=== PATIENT | male | born 1990 | race Caucasian/White ===

== ENCOUNTER 2016-10-20 12:32 | Emergency (ER) | payer SELFPAY ==
[2016-10-20 12:48] VITALS: BP 141/99
[2016-10-20] MEDS ORDERED: Ketorolac 30 MG/ML SDV IM ONE (13:13)
--- NOTE | 2016-10-20 13:19 | EDM.PDOC ---
ED HPI GENERAL MEDICAL PROBLEM - General Chief Complaint: Back Pain or Injury Stated Complaint: [id number] SOMETHING PULLED IN BACK Time Seen by Provider: 10/20/16 13:14 Source of Information: Reports: Patient History Limitations: Reports: No Limitations - History of Present Illness INITIAL COMMENTS - FREE TEXT/NARRATIVE: 26 yo male presents with lower back pain. States that he "felt something this morning before going to work and then I went to get in my car and felt worse when getting out." States that pain increases with sitting and bending. Pt used rolling walker to ambulate to stretcher. No other complaints. denies trauma. Onset: Today Onset Time: 10:00 Duration: Constant Location: Reports: Back Quality: Reports: Ache Severity: Moderate Improves with: Reports: Immobilization Worsens with: Reports: Movement Context: Reports: Activity Associated Symptoms: Reports: No Other Symptoms Lower Back Pain Score (Numeric/FACES): 10 - Related Data Allergies Allergy/AdvReac Type Severity Reaction Status Date / Time No Known Allergies Allergy Verified 10/20/16 12:48 Home Meds: Home Meds . [No Known Home Meds] 10/20/16 [History] Past Medical History - Past Health History Medical/Surgical History: Denies Medical/Surgical History Social & Family History - Family History Family Medical History: Noncontributory - Tobacco Use Smoking Status *Q: Current Every Day Smoker Years of Tobacco use: 10 Packs/Tins Daily: 0.5 - Caffeine Use Caffeine Use: Reports: Soda - Recreational Drug Use Recreational Drug Use: No ED ROS GENERAL - Review of Systems Review Of Systems: ROS reveals no pertinent complaints other than HPI. ED EXAM,LOWER BACK PAIN/INJURY - Physical Exam Exam: See Below Exam Limited By: No Limitations General Appearance: Alert, WD/WN, No Apparent Distress Eye Exam: Bilateral Eye: Normal Inspection, PERRL Throat/Mouth: Normal Inspection, Normal Lips, Normal Teeth, Normal Gums, Normal Oropharynx, Normal Voice, No Airway Compromise Head: Atraumatic, Normocephalic Neck: Normal Inspection, Supple, Non-Tender, Full Range of Motion Respiratory/Chest: No Respiratory Distress, Lungs Clear, Normal Breath Sounds, No Accessory Muscle Use, Chest Non-Tender Cardiovascular: Normal Peripheral Pulses, No Edema, No Gallop, No JVD, No Murmur , No Rub, Tachycardia GI/Abdominal: Normal Bowel Sounds, Soft, Non-Tender, No Organomegaly, No Distention, No Abnormal Bruit, No Mass Back Exam: Normal Inspection, Decreased Range of Motion, Other (no pain with palpation) Extremities: Normal Inspection, Normal Range of Motion, Non-Tender, No Pedal Edema, Normal Capillary Refill Neurological: Alert, Normal Mood/Affect, Normal Dorsiflexion, CN II-XII Intact, Normal Plantar Flexion, Normal Gait, No Motor/Sensory Deficits, Oriented x 3, Difficulty Walking (due to pain), Other (pain to rigth lower back with raising right leg 15 degrees) Course - Vital Signs Last Recorded V/S: Last Vital Signs Temp 97 F 10/20/16 12:44 Pulse 107 H 10/20/16 12:44 Resp 20 10/20/16 12:44 BP 141/99 H 10/20/16 12:44 Pulse Ox 98 10/20/16 12:44 - Orders/Labs/Meds Orders: Active Orders 24 hr Category Date Time Status Orphenadrine [Norflex] Med 10/20/16 13:15 Active 60 mg IM Q12H Medication Orders Orphenadrine Citrate (Norflex) 60 mg IM Q12H JENELLE Last Admin: 10/20/16 13:24 Dose: 60 mg Meds: Medications Generic Name Dose Route Start Last Admin Trade Name Freq PRN Reason Stop Dose Admin Orphenadrine Citrate 60 mg 10/20/16 13:15 10/20/16 13:24 Norflex IM 60 mg Q12H JENELLE Administration Discontinued Medications Generic Name Dose Route Start Last Admin Trade Name Freq PRN Reason Stop Dose Admin Hydromorphone HCl 1 mg 10/20/16 16:43 10/20/16 16:50 Dilaudid IM 10/20/16 16:44 1 mg ONETIME ONE Administration Ketorolac Tromethamine 30 mg 10/20/16 13:13 10/20/16 13:25 Toradol IM 10/20/16 13:14 30 mg ONETIME ONE Administration Morphine Sulfate 4 mg 10/20/16 15:41 10/20/16 15:45 Morphine IM 10/20/16 15:42 4 mg ONETIME ONE Administration - Radiology Interpretation Free Text/Narrative:: degenerative changes noted. No acute injury - Re-Assessments/Exams Free Text/Narrative Re-Assessment/Exam: 10/20/16 15:05 States pain decreased slightly but continues to c/o moderate pain. 10/20/16 16:41 Pt continues to c/o pain to lower back, states he feels like , " my legs are being ripped from my body" when trying to sit upright. currently laying flat. does not appear distress while flat lying. Will give dilaudid for pain 10/20/16 18:17 Pt ambulated to restroom with no assistance. States that pain has tremendously decreased. Departure - Departure Time of Disposition: 18:18 Disposition: Home, Self-Care 01 Condition: Good Clinical Impression: Lumbar strain Qualifiers: Encounter type: initial encounter Qualified Code(s): S39.012A - Strain of muscle, fascia and tendon of lower back, initial encounter - Discharge Information Instructions: Muscle Strain, [id number], Back Exercises, Back Pain, Adult, [id number], Pain Medicine Instructions, [id number] Forms: ED Department Discharge Additional Instructions: Try to move as much as you can to avoid stiffness. Take medication as needed for spasm and pain. Follow up with your PCP in 1 week if no improvement for orthopedic referral. Return for worsening symptoms Care Plan Goals: Ultram #10 Flexeril # 21 - My Orders Last 24 Hours: My Active Orders 10/20/16 13:15 Orphenadrine [Norflex] 60 mg IM Q12H - Assessment/Plan Last 24 Hours: My Active Orders 10/20/16 13:15 Orphenadrine [Norflex] 60 mg IM Q12H
[2016-10-20] MEDS ORDERED: Morphine 4 MG/ML Syringe IM ONE (15:41)
[2016-10-20] MEDS ORDERED: HYDROmorphone 1 MG/ML Syringe IM ONE (16:43)
== END 2016-10-20 18:40 | disposition home or self-care (01) ==
LOC: DL.ED 12:32
DX: S39.012A Strain of muscle, fascia and tendon of lower back, initial encounter (principal); F17.210 Nicotine dependence, cigarettes, uncomplicated; X50.9XXA Other and unspecified overexertion or strenuous movements or postures, initial encounter
CPT/HCPCS: 72131; 96372; 99284; J1170; J1885; J2270; J2360

== ENCOUNTER 2019-06-09 17:45 | Emergency (ER) | payer OTHER ==
[2019-06-09] MEDS ORDERED: Acetaminophen/HYDROcodone 325-10 MG Tab PO ONE (17:46)
[2019-06-09 18:02] VITALS: BP 140/77; PULSE 85
--- NOTE | 2019-06-09 19:21 | EDM.PDOC ---
ED HPI GENERAL MEDICAL PROBLEM - General Chief Complaint: Upper Extremity Injury/Pain Stated Complaint: WORK 2 MIDDLE FINGERS SMASHED Time Seen by Provider: 06/09/19 19:16 Source of Information: Reports: Patient History Limitations: Reports: No Limitations - History of Present Illness INITIAL COMMENTS - FREE TEXT/NARRATIVE: injured left fingers this am. Left Finger-Ring Pain Score (Numeric/FACES): 7 - Related Data Allergies Allergy/AdvReac Type Severity Reaction Status Date / Time No Known Allergies Allergy Verified 06/09/19 18:00 Home Meds: Home Meds . [No Known Home Meds] 10/20/16 [History] Past Medical History - Past Health History Medical/Surgical History: Denies Medical/Surgical History HEENT History: Reports: None Cardiovascular History: Reports: None Respiratory History: Reports: None Gastrointestinal History: Reports: None Genitourinary History: Reports: None Musculoskeletal History: Reports: None Neurological History: Reports: None Psychiatric History: Reports: None Endocrine/Metabolic History: Reports: Obesity/BMI 30+ Hematologic History: Reports: None Immunologic History: Reports: None Oncologic (Cancer) History: Reports: None Dermatologic History: Reports: None - Infectious Disease History Infectious Disease History: Reports: None - Past Surgical History Head Surgeries/Procedures: Reports: None Social & Family History - Family History Family Medical History: Noncontributory - Tobacco Use Smoking Status *Q: Current Every Day Smoker Years of Tobacco use: 10 Packs/Tins Daily: 0.5 Second Hand Smoke Exposure: No - Caffeine Use Caffeine Use: Reports: Soda - Recreational Drug Use Recreational Drug Use: No Review of Systems - Review of Systems Review Of Systems: Comprehensive ROS is negative, except as noted in HPI. ED EXAM, GENERAL - Physical Exam Exam: See Below Exam Limited By: No Limitations General Appearance: Alert, WD/WN, Mild Distress, Other (discomfort) Ears: Hearing Grossly Normal Throat/Mouth: Normal Voice, No Airway Compromise Head: Atraumatic Neck: Non-Tender, Full Range of Motion Respiratory/Chest: No Respiratory Distress Cardiovascular: Regular Rate, Rhythm GI/Abdominal: Soft, Non-Tender Extremities: Other (left 3rd 4th swollen tender, 3rd nail small split ) Neurological: Alert, Oriented, Normal Cognition, Normal Gait, No Motor/Sensory Deficits Psychiatric: Normal Affect, Normal Mood Skin Exam: Warm, Dry, Normal Color Lymphatic: No Adenopathy Course - Vital Signs Last Recorded V/S: Last Vital Signs Temp 36.6 C 06/09/19 17:55 Pulse 85 06/09/19 17:55 Resp 16 06/09/19 17:55 BP 140/77 06/09/19 17:55 Pulse Ox 95 06/09/19 17:55 - Re-Assessments/Exams Free Text/Narrative Re-Assessment/Exam: 06/09/19 19:20 results discussed with pt. Departure - Departure Time of Disposition: 19:21 Disposition: Home, Self-Care 01 Condition: Good Clinical Impression: Fracture, finger, distal phalanx Qualifiers: Encounter type: initial encounter Finger: middle finger Fracture type: closed Fracture alignment: nondisplaced Laterality: left Qualified Code(s): S62.663A - Nondisplaced fracture of distal phalanx of left middle finger, initial encounter for closed fracture Finger fracture, left Qualifiers: Encounter type: initial encounter Finger: ring finger Fracture type: closed Phalanx: distal Fracture alignment: displaced Qualified Code(s): S62.635A - Displaced fracture of distal phalanx of left ring finger, initial encounter for closed fracture - Discharge Information Instructions: Finger Fracture, Adult, [id number] Additional Instructions: 1) wear splint for 1 week 2) ice for swelling 3) avoid use of left hand for 1 week 4) follow up at clinic rx given; vicodin 5/325mg bid prn x 6 Sepsis Event Note - Evaluation Sepsis Screening Result: No Definite Risk - Focused Exam Vital Signs: Vital Signs Temp Pulse Resp BP Pulse Ox 06/09/19 17:55 36.6 C 85 16 140/77 95 Date Exam was Performed: 06/09/19 Time Exam was Performed: 19:15
[2019-06-09] MEDS ORDERED: Acetaminophen/HYDROcodone 325-10 MG Tab ONE (19:22)
== END 2019-06-09 19:26 | disposition home or self-care (01) ==
LOC: DL.ED 17:45
DX: S62.663A Nondisplaced fracture of distal phalanx of left middle finger, initial encounter for closed fracture (principal); S62.635A Displaced fracture of distal phalanx of left ring finger, initial encounter for closed fracture; E66.9 Obesity, unspecified; F17.210 Nicotine dependence, cigarettes, uncomplicated
CPT/HCPCS: 73130-LT; 99283; A9270-GY

== ENCOUNTER 2023-09-12 04:57 | Emergency (ER) | payer BC ==
[2023-09-12 05:32] VITALS: BP 161/101; PULSE 76
[2023-09-12] MEDS: Ketorolac 30 MG/ML SDV IM ONE (06:29)
[2023-09-12] MEDS: Cyclobenzaprine 10 MG Tab PO ONE (06:35)
[2023-09-12] MEDS: Take Home: Cyclobenzaprine 10 MG Tab, 4 Tab Pack PO ONE (06:35)
== END 2023-09-12 06:40 | disposition home or self-care (01) ==
LOC: DL.ED 04:57
DX: S16.1XXA Strain of muscle, fascia and tendon at neck level, initial encounter (principal); E66.9 Obesity, unspecified; F17.210 Nicotine dependence, cigarettes, uncomplicated; Z86.16 Personal history of COVID-19; Z68.41 Body mass index [BMI] 40.0-44.9, adult; X58.XXXA Exposure to other specified factors, initial encounter
CPT/HCPCS: 96372; 99283; A9270; J1885

== ENCOUNTER 2023-10-22 06:18 | Day surgery (SDC) | payer BC ==
[2023-10-22] MEDS ORDERED: fentaNYL 100 MCG/2 ML SDV IV ONE (06:19)
[2023-10-22] MEDS ORDERED: Midazolam 1 MG/ML 2 ML SDV IV ONE (06:19)
[2023-10-22] MEDS ORDERED: fentaNYL 100 MCG/2 ML SDV ONE (06:23)
[2023-10-22] MEDS ORDERED: Midazolam 1 MG/ML 2 ML SDV ONE (06:23)
[2023-10-22] MEDS: Dextrose 5%-0.45% NaCl 1,000 ML IV SCH (06:48)
[2023-10-22] MEDS: fentaNYL 100 MCG/2 ML SDV IV ONE ×2 (07:07→07:08)
[2023-10-22] MEDS: Midazolam 1 MG/ML 2 ML SDV IV ONE ×2 (07:08→07:09)
[2023-10-22 08:09] VITALS: BP 102/45
[2023-10-22 08:33] VITALS: PULSE 43
== END 2023-10-22 08:44 | disposition home or self-care (01) ==
LOC: DL.ENDO 06:18
PROVIDERS: ATTEND Internal Medicine Gastroenterology
DX: K52.9 Noninfective gastroenteritis and colitis, unspecified (principal)
CPT/HCPCS: 43239; 87077; J2250; J3010; J7799

== ENCOUNTER 2023-12-17 05:52 | Day surgery (SDC) | payer BC ==
[2023-12-17] MEDS ORDERED: Midazolam 1 MG/ML 2 ML SDV ONE (06:19)
[2023-12-17] MEDS ORDERED: fentaNYL 100 MCG/2 ML SDV ONE (06:20)
[2023-12-17] MEDS: Dextrose 5%-0.45% NaCl 1,000 ML IV SCH (06:27)
[2023-12-17] MEDS: fentaNYL 100 MCG/2 ML SDV IV ONE ×2 (07:17→07:18)
[2023-12-17] MEDS: Midazolam 1 MG/ML 2 ML SDV IV ONE ×6 (07:18→07:26)
[2023-12-17 08:44] VITALS: BP 109/70; PULSE 64
== END 2023-12-17 09:00 | disposition home or self-care (01) ==
LOC: DL.ENDO 05:52
PROVIDERS: ATTEND Internal Medicine Gastroenterology
DX: D12.0 Benign neoplasm of cecum (principal); K62.1 Rectal polyp
CPT/HCPCS: 45385; J2250; J3010; J7799

== ENCOUNTER 2024-01-02 10:23 | Emergency (ER) | payer BC ==
[2024-01-02] MEDS ORDERED: Sodium Chloride 0.9% 10 ML Syringe FLUSH PRN (11:42)
[2024-01-02] MEDS: HYDROmorphone 1 MG/ML Syringe IVPUSH ONE (11:50)
[2024-01-02] MEDS: Ondansetron 4 MG/2 ML SDV IVPUSH ONE (11:50)
[2024-01-02] MEDS: Sodium Chloride 0.9% 1,000 ML IV ONE (11:51)
[2024-01-02 12:05] LABS: BASOPHILS PERCENT AUTO 0.1 % (0.0-1.0); HEMATOCRIT 50.7 % (40.0-54.0); HEMOGLOBIN 17.3 g/dL (14.0-18.0); LYMPHOCYTES PERCENT AUTO 6.1 % (20.5-50.1); MEAN CORPUSCULAR HEMOGLOBIN 28.6 pg (27.0-34.0); MEAN CORPUSCULAR HGB CONC 34.1 g/dL (33.0-35.0); MEAN CORPUSCULAR VOLUME 83.8 fL (80-100); MONOCYTES PERCENT AUTO 4.5 % (2-8); NEUTROPHILS PERCENT AUTO 89.3 % (42.2-75.2); PLATELET COUNT,PLT 260 10^3/uL (150-450); RED BLOOD CELL COUNT 6.05 10^6/uL (4.6-6.2); WHITE BLOOD CELL COUNT,WBC 7.8 10^3/uL (5.0-10.0)
[2024-01-02] MEDS: Iopamidol 612 MG/ML 100 ML Bottle IVPUSH ONE (12:15)
[2024-01-02 12:23] LABS: INR 1.1 (0.9-1.2); PROTHROMBIN TIME 10.9 SEC (9.0-12.0); PTT,PARTIAL THROMBOPLSTIN TIME 24.6 SEC (22.0-34.0)
[2024-01-02 12:27] LABS: ALBUMIN 4.4 g/dL (3.4-5.0); ANION GAP 18.6 mEq/L (7-13); BILIRUBIN TOTAL 0.9 mg/dL (0.2-1.0); BUN/CREATININE RATIO 11.6 (No establ ref range); C-REACTIVE PROTEIN 3.11 ng/dL (<=0.50); CALCIUM 9.7 mg/dL (8.5-10.1); CREATININE 1.55 mg/dL (0.70-1.30); EST CRCL DRUG DOSING (CG) 73.71 mL/min; POTASSIUM,K 3.6 mmol/L (3.5-5.1); PROTEIN TOTAL,TP 8.6 g/dL (6.4-8.2)
[2024-01-02 12:33] LABS: LACTIC ACID 2.1 mmol/L (0.4-2.0)
[2024-01-02] MEDS: Take Home: Ondansetron 4 MG Tab.DIS, 5 Tab Pack PO ONE (13:38)
[2024-01-02 13:59] VITALS: BP 124/84; PULSE 88
== END 2024-01-02 13:56 | disposition home or self-care (01) ==
LOC: DL.ED 10:23
DX: K52.9 Noninfective gastroenteritis and colitis, unspecified (principal); K21.9 Gastro-esophageal reflux disease without esophagitis; E66.9 Obesity, unspecified; Z68.42 Body mass index [BMI] 45.0-49.9, adult; Z79.899 Other long term (current) drug therapy
CPT/HCPCS: 36415; 74177; 80053; 83605; 83690; 84145; 85025; 85610; 85730; 86140; 87040; 96361; 96374; 96375; 99284; J1171; J2405; J7030; Q0162; Q9967